=== PATIENT | female | born 1940 | race Two or more races ===

== ENCOUNTER 2022-04-19 06:04 | Day surgery (SDC) | payer OTHER ==
[~2022-04-19] VITALS: Ht 162.6 cm; Wt 90.7 kg
[~2022-04-19 06:04] MED LIST: ATOR-47 PO; BRIM0.2S2 OP; CLON0.1T PO; LISI-716 PO; POM; PRED1SUS4 OP
[2022-04-19] MEDS ORDERED: LIDOCAINE 2%HCL (LOCAL ANESTH.) INJ 20ML MDV ONE (07:43)
[2022-04-19] MEDS ORDERED: IODIXANOL 320MG/ML 100ML BTL IV ONE ×2 (07:43→08:19)
[2022-04-19] MEDS ORDERED: fentaNYL CITRATE 100 MCG/2 ML VL ONE (08:08)
[2022-04-19] MEDS ORDERED: ANGIOMAX 250 MG VIAL IV ONE (08:08)
[2022-04-19] MEDS ORDERED: VERAPAMIL 2.5MG/ML INJ 2ML VIAL IV ONE (08:08)
[2022-04-19] MEDS ORDERED: MIDAZOLAM HCL 2MG/2ML 2ml VIAL (1mg/ml) ONE (08:08)
[2022-04-19] MEDS ORDERED: SODIUM CHL 0.9% 0 ML ONE (08:09)
[2022-04-19] MEDS ORDERED: HEPARIN SODIUM (PORCINE) 5000 UNITS/ML 1ML VIAL ONE (08:09)
== END 2022-04-19 11:01 | disposition home or self-care (01) ==
LOC: CATH 06:04
PROVIDERS: ATTEND Internal Medicine
DX: R94.39 Abnormal result of other cardiovascular function study (principal); I25.118 Atherosclerotic heart disease of native coronary artery with other forms of angina pectoris; I27.20 Pulmonary hypertension, unspecified; I10 Essential (primary) hypertension; R73.03 Prediabetes; Z79.899 Other long term (current) drug therapy; Z98.890 Other specified postprocedural states; Z20.822 Contact with and (suspected) exposure to COVID-19
CPT/HCPCS: 93458; C1769; C1887; C1894; C9803; J1644; J2250; J3010; Q9967; U0003; 99152